=== PATIENT | female | born 1975 | race Caucasian/White ===

== ENCOUNTER 2020-03-12 16:52 | Emergency (ER) | payer BC, SELFPAY ==
[2020-03-12 17:07] VITALS: BP 125/81; PULSE 82; RESP 20; TEMP 36.9; O2SAT 99; BMI 20.4
[2020-03-12 17:20] VITALS: BP 125/81; PULSE 82; RESP 20; TEMP 36.9; O2SAT 99
--- NOTE | 2020-03-12 17:23 | HMH.EDUTC ---
[facility] [place] Clinical Impression: Exposure to COVID-19 virus Disposition: Home, Self-Care Condition on Discharge: Good Instructions: Preventing the Spread of Coronavirus Discharge Instructions Additional Instructions: Drink plenty of fluids. Take tylenol or ibuprofen for pain or fever. Follow up with your regular doctor. GO TO THE ER FOR ANY WORSENING SYMPTOMS FOLLOW THE DIRECTIONS ON THE COVID-19 HAND OUT THAT WE GAVE YOU REGARDING SELF-ISOLATION UNTIL YOU KNOW YOUR COVID-19 RESULTS Referrals: Hector Randolph [Primary Care Provider] - Forms: Work/School Release Time of Disposition: 17:24 Medical Decision Making - Medical Records Medical records reviewed: No: I reviewed the patient's medical records. - Sang Inquiry Pt receiving controlled substance: No Vital Signs: 03/12/20 17:07 03/12/20 17:20 Temperature 98.4 F 98.4 F Temperature Source Oral Pulse Rate 82 Pulse Rate [Left Brachial] 82 Respiratory Rate 20 20 Blood Pressure 125/81 Blood Pressure [Left Arm] 125/81 Blood Pressure Mean [Left Arm] 95 Blood Pressure Source [Left Arm] Automatic Cuff Blood Pressure Position [Left Arm] Sitting 02 Sat by Pulse Oximetry 99 Oxygen Delivery Method Room Air Orders (Tests/Meds): ORDERS Category Date Time Status Coronavirus 19 Swab (OUTPT) Routine Lab 03/12/20 17:24 Received [facility] [place] - General Stated complaint: covid test headace Time Seen by Provider: 03/12/20 17:10 Mode of Arrival: Ambulatory Source of Information: Patient Limitations: No Limitations Description of Symptoms (Recalled from Triage Doc. by RN): PATIENT C/O HEADACHE AND NECK PAIN X 2 DAYS. REQUESTING COVID TEST. NO KNOWN EXPOSURE HEENT Symptoms (Recalled from RN notes): Yes Resp Symptoms (Recalled from RN notes): No Skin Symptoms (Recalled from RN notes): No MS Symptoms (Recalled from RN notes): No Functional Status (Recalled from RN notes): WNL - History of Present Illness Provider Complaint: She c/o having frequent headaches for the past 2 days. She is not sure if she has been exposed to COVID-19, but she would like to be checked. - Related Data Allergies Allergy/AdvReac Type Severity Reaction Status Date / Time nitrofurantoin Allergy Verified 03/12/20 17:10 [From Macrobid] Sulfa (Sulfonamide Allergy Verified 03/12/20 17:10 Antibiotics) - Worker's Comp Is this a Worker's Comp case?: No [facility] History - Hepatitis A Screen Drug use history?: No High risk sexual behaviors?: No History of sexually transmitted infection?: No Currently employed?: No Childcare worker?: No Do you have indoor plumbing?: Yes Do you have electricity?: Yes Attestation statement:: This patient has been screened for Hepatitis A risk factors. I have reviewed the patient's past medical history: Yes - Social History Alcohol Intake: never Occupational Status: other ROS Obtained: Yes All systems reviewed & no additional complaints - Constitutional Constitutional: Denies chills, Denies fever(s), Reports poor appetite, Reports malaise - Eyes Eyes: Denies eye discharge - ENT Ears, Nose, Mouth, and Throat: Denies sore throat - Cardiovascular Cardiovascular: Denies chest pain - Respiratory Respiratory: No chest congestion, No cough Physical Exam - General General appearance: alert, in no apparent distress - Head Head exam: atraumatic, normocephalic, normal inspection - Eye Eye exam: Present: normal appearance, PERRL, EOMI - ENT ENT exam: Present: normal exam, normal oropharynx, mucous membranes moist, TM's normal bilaterally, normal external ear exam - Neck Neck exam: Present: normal inspection, full ROM, trachea midline. Absent: meningismus, lymphadenopathy - Chest Chest inspection: Present: normal inspection, symmetric chest wall rise. Absent: tenderness - Respiratory Respiratory exam: Present: normal lung sounds bilaterally. Absent: respiratory distress - Cardi
== END 2020-03-12 17:25 | disposition home or self-care (01) ==
PROVIDERS: Emergency Provider Nurse Practitioner Family; PCP Family Medicine
DX: Z20.828 Contact with and (suspected) exposure to other viral communicable diseases (principal); R51 Headache; Z88.2 Allergy status to sulfonamides
CPT/HCPCS: 99201; U0003

== ENCOUNTER 2020-07-19 09:37 | Emergency (ER) | payer BC, SELFPAY ==
[2020-07-19 09:40] VITALS: BP 140/82; PULSE 67; RESP 18; TEMP 36.6; O2SAT 99; BMI 21.9
--- NOTE | 2020-07-19 09:58 | HMH.EDUTC ---
[facility] [place]ression: Exposure to COVID-19 virus Disposition: Home, Self-Care Condition on Discharge: Good Instructions: DI for COVID-19 (Suspected or Confirmed ), COVID-19 Viral Test, COVID-19: Testing and Tracing, Preventing the Spread of Coronavirus Discharge Instructions Additional Instructions: *Monitor Temp, Over the counter Motrin or Tylenol as directed/as needed Tylenol every 4 hours and Motrin every 6 hours (as long as your family doctor has told you that you can take it) for fever or pain. and straight to ER if unable to lower temp less than 101.0 after medication given *Humidifier/Vaporizer *Flonase 2 sprays in each nostril daily but be aware that it may take 2-3 days before you notice improvement Follow up IMMEDIATELY for new or worsening symptoms or no Noticeable improvement over the next 48-72 hours. 911 for difficulty breathing or swallowing You were tested for today for COVID19 your test result should be back in the next 24-48 hours, you may call to the [facility] to see if your test results are back in the next 48 hours [phone] [facility] hours are 9am-9pm You was given a handout with instructions for Self Quarantine and Self isolation for while you wait on test results and what to do if they are positive If you are positive the Health Dept will be contacting you also Referrals: Hector Randolph [Primary Care Provider] - As needed Forms: Work/School Release Time of Disposition: 09:59 Medical Decision Making - Sang Inquiry Pt receiving controlled substance: No Sang was queried for this patient: No Vital Signs: 07/19/20 09:40 Temperature 97.8 F Temperature Source Oral Pulse Rate [Right Brachial] 67 Respiratory Rate 18 Blood Pressure [Right Arm] 140/82 Blood Pressure Mean [Right Arm] 101 Blood Pressure Source [Right Arm] Automatic Cuff Blood Pressure Position [Right Arm] Sitting 02 Sat by Pulse Oximetry 99 Oxygen Delivery Method Room Air Orders (Tests/Meds): ORDERS Category Date Time Status Covid-19 Nasal PCR Sendout P&[facility] Stat Lab 07/19/20 09:38 Ordered [facility] [place] - General Stated complaint: wants covid test,symtoms Time Seen by Provider: 07/19/20 09:58 Mode of Arrival: Ambulatory Source of Information: Patient Limitations: No Limitations Description of Symptoms (Recalled from Triage Doc. 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 States that she has not had any fever or any other symptoms - Related Data Allergies Allergy/AdvReac Type Severity Reaction Status Date / Time nitrofurantoin Allergy Verified 03/12/20 17:10 [From Macrobid] Sulfa (Sulfonamide Allergy Verified 03/12/20 17:10 Antibiotics) - Worker's Comp Is this a Worker's Comp case?: No [facility] History - Hepatitis A Screen Drug use history?: No High risk sexual behaviors?: No History of sexually transmitted infection?: No Currently employed?: No Childcare worker?: No Do you have indoor plumbing?: Yes Do you have electricity?: Yes Attestation statement:: This patient has been screened for Hepatitis A risk factors. I have reviewed the patient's past medical history: Yes Laterality Cases: Bilateral: Tonsillectomy - Social History Alcohol Intake: never Occupational Status: other ROS Obtained: Yes All systems reviewed & no additional complaints, Yes Systems reviewed as appropriate & no additional complaints - Constitutional Constitutional: Reports system reviewed and no additio
[2020-07-19 10:00] VITALS: BP 140/82; PULSE 67; RESP 18; TEMP 36.6; O2SAT 99
[2020-07-20 12:36] LABS: Covid-19 Nasal PCR Sendout P&C NEGATIVE
== END 2020-07-19 10:02 | disposition home or self-care (01) ==
PROVIDERS: Emergency Provider Nurse Practitioner; PCP Family Medicine
DX: Z20.828 Contact with and (suspected) exposure to other viral communicable diseases (principal); Z88.2 Allergy status to sulfonamides
CPT/HCPCS: 99201; U0004

== ENCOUNTER 2025-07-02 09:21 | Outpatient (CLI) | payer OTHER, SELFPAY ==
--- NOTE | 2025-07-02 09:25 | XR_ITS ---
FINAL REPORT CLINICAL HISTORY: right foot/ankle injury pain lateral FINDINGS: Right ankle Three views were obtained. There is no fracture or dislocation. The joint spaces appear normal. No soft tissue abnormality is identified. IMPRESSION: No acute process. Reviewed, Interpreted and Dictated by Macho Hayes MD Transcribed by Erika Farmer Authenticated and [facility]
--- NOTE | 2025-07-02 09:25 | XR_ITS ---
FINAL REPORT CLINICAL HISTORY: right foot/ankle injury pain dorsal surface FINDINGS: Right foot Three views were obtained. There is no fracture or dislocation. The joint spaces appear normal. No soft tissue abnormality is identified. IMPRESSION: No acute process. Reviewed, Interpreted and Dictated by Macho Hayes MD Transcribed by Erika Farmer Authenticated and [facility]
--- OUTSIDE RECORDS SUMMARY | 2025-07-02 09:34 | XMS_ITS | Clinical Summary ---
Author Organization [employer] ([place], [place], [place], [place], [place]) Address [address] [place] [address] Care Team Providers Care Manager Of Development Name Role Phone Natty Parr MD Primary Care Provider [phone] Social History Tobacco Use Types Packs/Day Years Used Date Smoking Tobacco: Never Assessed Comments Unknown Sex and Gender Information Value Date Recorded Sex Assigned at Female 09/11/2024 1:18 PM SOCIOLOGY RESEARCH ASSISTANT Legal Sex Female 1:18 PM SOCIOLOGY RESEARCH ASSISTANT Gender Identity Female 09/11/2024 1:18 PM SOCIOLOGY RESEARCH ASSISTANT Sexual Orientation Not on file Plan of Treatment Health Maintenance Due Date Last Done Comments CT Colonography 1976 Colonoscopy 1976 Colorectal Cancer Screening 1976 FOBT/FIT 1976 Fit-DNA (Cologuard) 1976 Sigmoidoscopy 1976 Depression Screening (12+) 1988 Tobacco Cessation Counseling and Screening (12+) 1988 HIV Screening 1991 Hepatitis C Screening 1994 DTAP/TDAP/TD VACCINES (1 - Tdap) 1995 Pap Smear 1997 Lipid Panel 2021 COVID-19 VACCINE ( season) 2025 03/08/2022, 06/14/2021, 11/18/2020, Additional history exists Influenza Vaccine (#1) 2025 Breast Cancer Screening 01/16/2026 01/17/2024, 09/14 Pneumococcal Vaccine: 0-49 Years Aged Out No longer eligible based on patient's age to complete this topic Procedures Procedure Name Priority Date/Time Associated Diagnosis Comments MM SCREENING BILATERAL WITH IMPLANTS WITH SVEN WITH CAD Routine 01/17/2024 2:06 PM EDT Visit for screening mammogram from Last 3 Months or Most Recently Relevant to Health Maintenance Results * MM Screening Bilateral With Implants w SVEN w CAD (01/17/2024 2:06 PM EDT) Anatomical Region Laterality Modality Breast Bilateral Mammography 01/21/2024 3:20 PM EDT Impressions 01/21/2024 3:24 PM EDT FINAL IMPRESSION: No mammographic evidence of malignancy. BI-RADS: ACR BI-RADS 2: Benign findings. RECOMMENDATIONS: Annual Screening Mammography This report will serve as an order for any recommended procedure(s). A letter including results and recommendations was sent to the patient. Density notification was provided to patients with dense breast tissue pattern. Patient information entered into a reminder system with a target due date for the next mammogram. At our facility, a [place] marker is positioned over a visible skin lesion and a linear marker is used to indicate a scar. A triangular marker is placed on a self reported palpable finding. Note: Mammography does not detect approximately 10-15% of breast cancers. An annual clinical breast exam by the patient's breast care physician and regular monthly self breast exams by the patient are integral parts of breast cancer screening, in addition to annual mammography. A normal mammogram does not completely exclude the presence of breast cancer, especially if there is an abnormal finding on physical exam. When clinically indicated, a biopsy should not be deferred because of a normal mammogram report. Narrative 01/21/2024 3:24 PM EDT PROCEDURE: Bilateral digital screening mammogram with tomosynthesis. REASON FOR EXAM: Routine screening. FAMILY HISTORY: Mother and maternal aunt with history of breast cancer. COMPARISON STUDY: None mammograms between August 2022 and June 2014. FINDINGS: Craniocaudal and mediolateral oblique images were obtained in 2D, C-view, and 3D modes. Craniocaudal and mediolateral oblique images of were obtained in 2D, C-view, and 3D modes with implant displacement. 2D CC and MLO views of each breast with implant inclusion were also obtained. This examination was reviewed with the benefit of computer-aided detection (CAD). There are scattered areas of fibroglandular density. There are no suspicious findings. There are intact subpectoral saline implants. Natty Parr MD IMG MAMMOGRAPHY ORDERABLES Fin al Result from Last 3 Months or Most Recently Relevant to Health Maintenance Insurance [employer] Care Teams Manager Of Development Relationship Specialty Start Date End Date Natty Parr MD [address] [place] [id number] PCP - General Obstetrics and Gynecology 09/14/22
--- OUTSIDE RECORDS SUMMARY | 2025-07-02 09:34 | XMS_ITS | Referral Summary ---
Author Organization [employer] ([place], [place], [place], [place], [place]) Address [address] [place] [address] Care Team Providers Care Copper Miner Name Role Phone Natty Parr MD Primary Care Provider [phone] Social History Tobacco Use Types Packs/Day Years Used Date Smoking Tobacco: Never Assessed Comments Unknown Sex and Gender Information Value Date Recorded Sex Assigned at Female 09/11/2024 1:18 PM PLANT PATHOLOGY TEACHER Legal Sex Female 1:18 PM PLANT PATHOLOGY TEACHER Gender Identity Female 09/11/2024 1:18 PM PLANT PATHOLOGY TEACHER Sexual Orientation Not on file Plan of Treatment Not on file Procedures Procedure Name Priority Date/Time Associated Diagnosis [...] the next mammogram. At our facility, a [place] marker is positioned over a visible skin [...] to Health Maintenance Insurance [employer] Care Teams Copper Miner Relationship Specialty Start Date End Date Natty Parr MD [address] [facility] [address] [place] [address] PCP - General Obstetrics and Gynecology 09/14/22
== END 2025-07-02 23:59 | disposition home or self-care (01) ==
LOC: RAD 09:23
PROVIDERS: PCP Family Medicine; Visit Provider Podiatrist
DX: S99.921A Unspecified injury of right foot, initial encounter (principal); M79.671 Pain in right foot; S99.911A Unspecified injury of right ankle, initial encounter; M25.571 Pain in right ankle and joints of right foot
CPT/HCPCS: 73610; 73630

== ENCOUNTER 2025-07-13 08:16 | Outpatient (CLI) | payer OTHER, SELFPAY ==
--- OUTSIDE RECORDS SUMMARY | 2025-06-19 14:15 | XMS_ITS | Encounter Summary ---
Author Organization [facility] Address [address] [place] [address] Care Team Providers Care Repairer Pump Name Role Phone Chris Randolph MD Primary Care Provider [phone] Reason for Visit * Reason Comments ER follow up Encounter Details Date Type Department Care Team (Late st Contact Info) Description 06/19/2025 2:15 PM EST Office Visit [facility] [address] [place] [address] [place] [address] Chris Randolph MD [address] [place] [address] [place] [address] Elevated blood pressure reading in office without diagnosis of hypertension (Primary Dx); Avulsion fracture; Skin cyst Social History Tobacco Use Types Packs/Day Years Used Date Smoking Tobacco: Never Passive Smoke Exposure: Never Smokeless Tobacco: Never Alcohol Use Standard Drinks/Week Comments Yes 0 (1 standard drink = 0.6 oz pur e alcohol) socail PHQ-2 Answer Date Recorded Retired PHQ-9: Brief Depression Severity Measure Score 0 03/19/2023 Abuse Screen Answer Date Recorded Feels Unsafe at Home or Work/School no 06/16/2025 Feels Threatened by Someone no 05/30 Does Anyone Try to Keep You From Having Contact with Others or Doing Things Outside Your Home? no 06/16/2025 Physical Signs of Abuse Present no 06/16/2025 PHQ-2 Answer Date Recorded Patient Health Questionnaire-2 Score 0 06/19/2025 Comments No Sex and Gender Information Value Date Recorded Sex Assigned at Not on file Legal Sex Female 12:53 PM EDT Gender Identity Not on file Sexual Orientation Not on file Travel History Travel Start Travel End [place] 05/22/2025 06/22/2025 documented as of this encounter Last Filed Vital Signs Vital Sign Reading Time Taken Comments Blood Pressure 152/84 06/19/2025 2:29 PM EST Pulse 69 06/19/2025 2:29 PM EST Temperature 36.8 C (98.2 F) 06/19/2025 2:29 PM EST Respiratory Rate - - Oxygen Saturation 98% 06/19/2025 2:29 PM EST Inhaled Oxygen Concentration - - Weight 56.7 kg (125 lb) 06/19/2025 2:29 PM EST Height 160 cm (5' 3 ) 06/19/2025 2:29 PM EST Body Mass Index 22.14 06/19/2025 2:29 PM EST documented in this encounter Functional Status documented as of this encounter Progress Notes * Chris Randolph MD - 06/19/2025 2:15 PM ESTAssociated Order(s): ECG 12 Lead Pre-Procedure Diagnose(s): Elevated blood pressure reading in office without diagnosis of hypertension Post-Procedure Diagnose(s): Elevated blood pressure reading in office without diagnosis of hypertension Images from the original note were not included. Follow Up Office Visit Date: 06/19/2025 Patient Name: Lucian Brown : 1975 Chief Complaint: Chief Complaint Patient presents with ER follow up History of Present Illness: Lucian Brown is a 49 y.o. female who is here today for elevatedblood pressure and foot injury. History of Present Illness The patient presents for evaluation of elevated blood pressure, a foot injury, and a finger lump. She reports a history of slightly elevated blood pressure, with an instance of being disqualified from blood donation due to hypertension. During a recent emergency room visit on Sunday, her blood pressure was recorded at 170/100. She does not regularly monitor her blood pressure but estimates it has been checked approximately four times in the past year. She experiences occasional dizziness andheart palpitations, symptoms she has had for the majority of her life. She reports no family history of hypertension. Her dietary habits include a high intake of salt and she consumes 1 to 2 units ofalcohol nightly, although there are nights when she abstains. Non-smoker. She sustained a right foot injury during an endurance race last weekend, where she fell off a horseand her foot got caught in the stirrup. She was evaluated at [facility] ER several days later where an x-ray of her right foot revealed radiographic evidence of an avulsion fracture of the cuboid bone. She has been fitted with a boot and has an orthopedic follow-up appointment schedule d for next week. She reports mild soreness in her foot, particularly around the suspected fracture site, and some soft tissue swelling. She has been managing the pain with ibuprofen, taking one or two tablets as needed. She has a small mucoid-filled bubble on her distal right third finger, which she has attempted to treat by cutting off the top. The bubble appears to heal temporarily but then refills with fluid. This issue has persisted for three to four months and has caused some deformation of the nail bed. SOCIAL HISTORY The patient drinks 1 to 2 units of alcohol probably a night sometimes and then sometimes not at all. FAMILY HISTORY The patient does not have a family history of hypertension. MEDICATIONS CURRENT MEDS: Ibuprofen Oral When needed Subjective Review of Systems: Review of Systems I have reviewed the patients family history, social history, past medical history, past surgical history and have updated it as appropriate. Medications: No current outpatient medications on file. Allergies: Allergies Allergen Reactions Nitrofuran Derivatives Hives Sulfa Antibiotics Hives Objective Physical Exam: Please see above Vital Signs: Vitals: 06/19/25 1429 BP: 152/84 BP Location: Left arm Patient Position: Sitting Cuff Size: Adult Pulse: 69 Temp: 98.2 ??F (36.8 ??C) TempSrc: Temporal SpO2: 98% Weight: 56.7 kg (125 lb) Height: 160 cm (63 ) Body mass index is 22.14 kg/m??. BMI is within normal parameters. No other follow-up for BMI required. Physical Exam Constitutional: General: She is not in acute distress. Appearance: Normal appearance. She is normal weight. She is not ill-appearing. Cardiovascular: Rate and Rhythm: Normal rate and regular rhythm. Heart sounds: Normal heart sounds. No murmur heard. No friction rub. No gallop. Pulmonary: Effort: Pulmonary effort is normal. No respiratory distress. Breath sounds: Normal breath sounds. Musculoskeletal: General: Swelling, tenderness and signs of injury present. Comments: Right mid to distal dorsal foot swelling and pain, more noted at the mid dorsal lateral aspect, NVI. Wearing a walking boot Skin: Findings: Lesion present. Comments: 4 to 5 mm diameter fluctuant skin lesion of the distal dorsal phalanx of the right third finger abutting the nailbed margin. This lesion was cleansed with alcohol followed by needle rupture of the cyst and subsequent cryotherapy application. Tolerated well Neurological: General: No focal deficit present. Mental Status: She is alert and oriented to person, place, and time. Mental status is at baseline. Psychiatric: Mood and Affect: Mood normal. 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 Elevated blood pressure reading in office without diagnosis of hypertension (Primary) - ECG 12 Lead 2. Avulsion fracture 3. Skin cyst Assessment & Plan 1. Elevated blood pressure without diagnosis of hypertension. Her blood pressure readings have been inconsistent over the past year, with only a few measurementstaken. The current readings are not ideal for long-term health. She has been advised to reduce her alcohol consumption and monitor her blood pressure more frequently, aiming for readings below 130/80. An EKG performed today has ruled out left ventricular hypertrophy, including incidental finding ofIVCD and left anterior fascicular block likely of no clinical significance. She is advised to startchecking blood pressures regularly with ideal parameters discussed, and follow-up in the office in 6 weeks for review as well as for complete physical. Discussed with patient that [place] blood pressure is 130/80 or lower. If her blood pressure remains elevated in the 140s over 90s consistently over a period of 6 weeks, antihypertensive medication will be considered. 2. Right foot injury/avulsion fracture. She sustained a minor avulsion fracture of the cuboid bone in her right foot during an endurance race last weekend 6 days ago. She was evaluated at [facility] emergency room 3 days ago where x-rays confirmed this diagnosis. The foot is currently in a boot, and she has an orthopedic follow-up scheduled for next week. She is taking ibuprofen as needed for pain management. 3. Finger lump. A small mucoid-filled bubble on her distal dorsal right third finger has been present for 3 to 4 months and is causing some deformation of the nail bed. A needle aspiration will be attempted to drainthe fluid followed by cryotherapy application. If this procedure is unsuccessful, a referral to a risk professional will be considered. PROCEDURE Procedure: Needle aspiration of mucoid-filled bubble on finger - Procedural Discussion: Discussed the patient's mucoid-filled bubble on the finger, including the option to rupture it with a needle. The patient mentioned previous attempts to cut the top off, which led to temporary relief but recurrence. The patient consented to the needle aspiration procedure. - Technique: A needle was used to rupture and penetrate the mucoid-filled bubble on the finger. Vaccine Counseling: Follow Up: Return in about 6 weeks (around 07/31/2025) for Annual physical. 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 06/19/2025 17:29 EST At [facility], we believe that sharing information builds trust and better relationships. You are receiving this note because you recently visited [facility]. It is possible you will see health information before a provider has talked with you about it. This kind of information can be easy to misunderstand. To help you fully understand what it means for your health, we urge you to discussthis note with your provider. Chris Randolph MD [facility] Manda documented in this encounter Plan of Treatment Upcoming Encounters Date Type Department Care Team (Late st Contact Info) Description 11/30/2025 10:50 AM EDT Office Visit [facility] [address] [facility] [address] [place] [address] Natty Parr MD [address] [facility] [address] [place] [address] documented as of this encounter Procedures Procedure Name Priority Date/Time Associated Diagnosis Comments ECG 12-LEAD Routine 06/19/2025 Elevated blood pressure reading in office without diagnosis of hypertension documented in this encounter Results * ECG 12-LEAD (06/19/2025) Narrative [facility] ECG - 06/19/2025 Chris Randolph MD 06/19/2025 5:31 PM ECG 12 Lead Date/Time: 06/19/2025 5:30 PM Performed by: Chris Randolph MD Authorized by: Chris Randolph MD Comparison: compared with previous ECG from 09/30/2019 Comparison to previous ECG: Sinus rhythm rate 67, IVCD, left anterior fascicular block, 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 Follow Up Office Visit Date: 06/19/2025 Patient Name: Lucian Brown : 1975 Chief Complaint: Chief Complaint Patient presents with ER follow up History of Present Illness: Lucian Brown is a 49 y.o. female whois here today for elevated blood pressure and foot injury. History of Present Illness The patient presents for evaluation of elevated blood pressure, a footinjury, and a finger lump. She reports a history of slightly elevated blood pressure, with aninstance of being disqualified from blood donation due to hypertension.During a recent emergency room visit on Sunday, her blood pressure wasrecorded at 170/100. She does not regularly monitor her blood pressure butestimates it has been checked approximately four times in the past year.She experiences occasional dizziness and heart palpitations, symptoms shehas had for the majority of her life. She reports no family history ofhypertension. Her dietary habits include a high intake of salt and sheconsumes 1 to 2 units of alcohol nightly, although there are nights whenshe abstains. Non- smoker. She sustained a right foot injury during an endurance race last weekend,where she fell off a horse and her foot got caught in the stirrup. She wasevaluated at [facility] ER several days later where an x-rayof her right foot revealed radiographic evidence of an avulsion fractureof the cuboid bone. She has been fitted with a boot and has an orthopedicfollow-up appointment scheduled for next week. She reports mild sorenessin her foot, particularly around the suspected fracture site, and somesoft tissue swelling. She has been managing the pain with ibuprofen,taking one or two tablets as needed. She has a small mucoid-filled bubble on her distal right third finger,which she has attempted to treat by cutting off the top. The bubbleappears to heal temporarily but then refills with fluid. This issue haspersisted for three to four months and has caused some deformation of thenail bed. SOCIAL HISTORY The patient drinks 1 to 2 units of alcohol probably a night sometimes andthen sometimes not at all. FAMILY HISTORY The patient does not have a family history of hypertension. MEDICATIONS CURRENT MEDS: Ibuprofen Oral When needed Subjective Review of Systems: Review of Systems I have reviewed the patients family history, social history, past medicalhistory, past surgical history and have updated it as appropriate. Medications: No current outpatient medications on file. Allergies: Allergies Allergen Reactions Nitrofuran Derivatives Hives Sulfa Antibiotics Hives Objective Physical Exam: Please see above Vital Signs: Vitals: 06/19/25 1429 BP: 152/84 BP Location: Left arm Patient Position: Sitting Cuff Size: Adult Pulse: 69 Temp: 98.2 F (36.8 C) TempSrc: Temporal SpO2: 98% Weight: 56.7 kg (125 lb) Height: 160 cm (63 ) Body mass index is 22.14 kg/m . BMI is within normal parameters. No other follow-up for BMI required. Physical Exam Constitutional: General: She is not in acute distress. Appearance: Normal appearance. She is normal weight. She is notill-appearing. Cardiovascular: Rate and Rhythm: Normal rate and regular rhythm. Heart sounds: Normal heart sounds. No murmur heard. No friction rub. No gallop. Pulmonary: Effort: Pulmonary effort is normal. No respiratory distress. Breath sounds: Normal breath sounds. Musculoskeletal: General: Swelling, tenderness and signs of injury present. Comments: Right mid to distal dorsal foot swelling and pain, more notedat the mid dorsal lateral aspect, NVI. Wearing a walking boot Skin: Findings: Lesion present. Comments: 4 to 5 mm diameter fluctuant skin lesion of the distal dorsalphalanx of the right third finger abutting the nailbed margin. This lesion was cleansed with alcohol followed by needle rupture of thecyst and subsequent cryotherapy application. Tolerated well Neurological: General: No focal deficit present. Mental Status: She is alert and oriented to person, place, and time.Mental status is at baseline. Psychiatric: Mood and Affect: Mood normal. ECG 12 Lead Date/Time: 06/19/2025 5:30 PM Performed by: Chris Randolph MD Authorized by: Chris Randolph MD Comparison: compared with previous ECGfrom 09/30/2019 Comparison to previous ECG: Sinus rhythm rate 67, IVCD, left anteriorfascicular block, LAFB new from previous EKG Results: Labs: TSH Date Value Ref Range Status 10/19/2021 1.640 0.270 - 4.200 uIU/mL Final POCT Results (if applicable): Results for orders placed or performed in visit on 01/19/25 [facility] GENETIC RISK ASSESSMENT QUESTIONNAIRE - , Collection Time: 01/19/25 8:24 AM Result Value Ref Range TyrerCuzick 22.6 (A) NCCN NCCN met (A) Assessment / Plan Assessment/Plan: Diagnoses and all orders for this visit: 1. Elevated blood pressure reading in office without diagnosis ofhypertension (Primary) - ECG 12 Lead 2. Avulsion fracture 3. Skin cyst Assessment & Plan 1. Elevated blood pressure without diagnosis of hypertension. Her blood pressure readings have been inconsistent over the past year,with only a few measurements taken. The current readings are not ideal forlong-term health. She has been advised to reduce her alcohol consumptionand monitor her blood pressure more frequently, aiming for readings xdedd595/80. An EKG performed today has ruled out left ventricular hypertrophy,including incidental finding of IVCD and left anterior fascicular blocklikely of no clinical significance. She is advised to start checkingblood pressures regularly with ideal parameters discussed, and follow- upin the office in 6 weeks for review as well as for complete physical.Discussed with patient that [place] blood pressure is 130/80 or lower. Ifher blood pressure remains elevated in the 140s over 90s consistently overa period of 6 weeks, antihypertensive medication will be considered. 2. Right foot injury/avulsion fracture. She sustained a minor avulsion fracture of the cuboid bone in her rightfoot during an endurance race last weekend 6 days ago. [facility] where x-raysconfirmed this diagnosis. The foot is currently in a boot, and she has anorthopedic follow-up scheduled for next week. She is taking ibuprofen asneeded for pain management. 3. Finger lump. A small mucoid-filled bubble on her distal dorsal right third finger hasbeen present for 3 to 4 months and is causing some deformation of the nailbed. A needle aspiration will be attempted to drain the fluid followed bycryotherapy application. If this procedure is unsuccessful, a referral toa risk professional will be considered. PROCEDURE Procedure: Needle aspiration of mucoid-filled bubble on finger - Procedural Discussion: Discussed the patient's mucoid-filled bubble onthe finger, including the option to rupture it with a needle. The patientmentioned previous attempts to cut the top off, which led to temporaryrelief but recurrence. The patient consented to the needle aspirationprocedure. - Technique: A needle was used to rupture and penetrate the mucoid-filledbubble on the finger. Vaccine Counseling: Follow Up: Return in about 6 weeks (around 07/31/2025) for Annual physical. 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 06/19/2025 17:29 EST At [facility], we believe that sharing information builds trust andbetter relationships. You are receiving this note because you [facility]. It is possible you will see health informationbefore a provider has talked with you about it. This kind of informationcan be easy to misunderstand. To help you fully understand what it meansfor your health, we urge you to discuss this note with your provider. Chris Randolph MD [facility] us Chris Randolph MD ECG ORDERABLES Final Result ECG documented in this encounter Visit Diagnoses Diagnosis Elevated blood pressure reading in office without diagnosis of hypertension- Primary Avulsion fracture Closed fracture of unspecified bone Skin cyst Sebaceous cyst documented in this encounter Care Teams Repairer Pump Relationship Specialty Start Date End Date Chris Randolph MD [address] [place] [address] PCP - General Internal Medicine 03/19/23 documented as of this encounter
--- OUTSIDE RECORDS SUMMARY | 2025-06-22 10:50 | XMS_ITS | Encounter Summary ---
Author Organization [facility] Address [address] [place] [address] Care Team Providers Care Aircraft Engineer Name Role Phone Chris Randolph MD Primary Care Provider [phone] Reason for Visit * Reason Comments Pain * Consultation (Urgent) - Closed Specialty Diagnoses / Procedures Referred By Contac t Referred To Contact Orthopedic Surgery Diagnoses Closed nondisplaced fracture of cuboid of right foot, initial encounter Mark Anthony Daniel MD [address] [facility] [address] [place] [address] Phone: tel: fax: [facility] ORTHOPEDICS & SPORTS MEDICINE [address] [facility] [address] [place] [address] Phone: tel: fax: Referral ID Status Reason Start Date Expiration Date V isits Requested Visits Authorized [id number] Closed Specialty Services Required 06/16/2025 09/15/2026 1 1 Encounter Details Date Type Department Care Team (Late st Contact Info) Description 06/22/2025 10:50 AM EST Office Visit [facility] [address] [facility] [address] [place] [address] Deepti Colby PA-C [address] [facility] [address] [place] [address] Joint pain of ankle and foot, right (Primary Dx) Social History Tobacco Use Types Packs/Day Years [...] file Travel History Travel Start Travel End [place] 05/22/2025 06/22/2025 documented as of this encounter Last Filed Vital Signs Vital Sign Reading Time Taken Comments Blood Pressure 150/92 06/22/2025 10:54 AM EST Pulse - - Temperature - - Respiratory Rate - - Oxygen Saturation - - Inhaled Oxygen Concentration - - Weight 55.8 kg (123 lb 1.6 oz) 06/22/2025 10:54 AM EST Height 157.5 cm (5' 2 ) 06/22/2025 10:54 AM EST Body Mass Index 22.52 06/22/2025 10:54 AM EST documented in this encounter Progress Notes * Deepti Colby PA-C - 06/22/2025 10:50 AM EST Images from the original note were not included. [facility] Office Visit - Deepti Colby PA-C Office Visit Patient Name: Lucian Brown Chief Complaint: Chief Complaint Patient presents with Right Foot - Pain Referring Physician: Mark Anthony Daniel MD History of Present Illness: Lucian Brown is a very pleasant 49 y.o. female who presents to discuss her right foot pain.She reports she was riding her horse and fell getting her foot caught in the stirrup. The foot was twisted. This happened on 06/13/2025. She complains of dorsal foot pain as well as ankle pain and lateral ankle pain. She was seen at the ED with x-rays and placed in a tall boot. She has been weightbearing and walking the boot which does seem to improve her pain. 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 She has been treating with ibuprofen. Here for further evaluation and treatment conditions. Subjective Review of Systems Constitutional: Negative for chills, fever, unexpected weight gain and unexpected weight loss. HENT: Negative for congestion, postnasal drip and rhinorrhea. Eyes: Negative for blurred vision. Respiratory: Negative for shortness of breath. Cardiovascular: Negative for leg swelling. Gastrointestinal: Negative for abdominal pain, nausea and vomiting. Genitourinary: Negative for difficulty urinating. Musculoskeletal: Positive for arthralgias. Negative for gait problem, joint swelling and myalgias. Skin: Negative for skin lesions and wound. Neurological: Negative for dizziness, weakness, light-headedness and numbness. Hematological: Does not bruise/bleed easily. Psychiatric/Behavioral: Negative for depressed mood. Past Medical History: Past Medical History: Diagnosis Date Abnormal ECG Abnormal Pap smear of cervix Breast cyst 08/2020 patient had mammogram that showed benign breast cyst Thyroid adenoma benign Past Surgical History: Past Surgical History: Procedure Laterality Date AUGMENTATION MAMMAPLASTY Bilateral saline implants since 2013 BREAST AUGMENTATION BREAST LUMPECTOMY Left CERVICAL CONE BIOPSY SECTION DENTAL PROCEDURE as a teen DILATATION AND CURETTAGE HAND SURGERY right thumb scar tissue removal HERNIA REPAIR THYROIDECTOMY, PARTIAL 2013 TONSILLECTOMY TUBAL ABDOMINAL LIGATION WISDOM TOOTH EXTRACTION Family History: Family History Problem Relation Name Age of Onset Heart disease Mother Hypertension Mother Breast cancer Mother 50 Fibroids Mother Brain cancer Paternal Grandfather Lung cancer Paternal Grandfather Osteoporosis Maternal Grandmother Leukemia Maternal Grandmother Breast cancer Maternal Aunt Colon cancer Maternal Aunt Osteoporosis Maternal Aunt Social History: Social History Socioeconomic History Marital status: Single Tobacco Use Smoking status: Never Passive exposure: Never Smokeless tobacco: Never Vaping Use Vaping status: Never Used Substance and Sexual Activity Alcohol use: Yes Comment: socail Drug use: Never Sexual activity: Yes Partners: Male control/protection: Tubal ligation Comment: tubal ligation Medications: Current Outpatient Medications: ibuprofen (ADVIL,MOTRIN) 200 MG tablet, Take 1 tablet by mouth As Needed for Mild Pain., Disp: , Rfl: Allergies: Allergies Allergen Reactions Nitrofuran Derivatives Hives Sulfa Antibiotics Hives I have reviewed and updated the following portions of the patient's history and review of systems: allergies, current medications, past family history, past medical history, past social history, pastsurgical history and problem list. Objective Vital Signs: Vitals: 06/22/25 1054 BP: 150/92 Weight: 55.8 kg (123 lb 1.6 oz) Height: 157.5 cm (62 ) Ortho Exam: V: Dorsalis Pedis: Right: 2+; Posterior Tibial: Right:2+; Capillary Refill: Brisk MSK: Tibia: Right: non tender; Ankle: Right: tender over the ATFL, anterior ankle with no medial tenderness. No bony tenderness., ROM normal, and motor function normal; Pain with resisted dorsiflexion Foot: Right: tender somewhat diffuse tenderness, most tender over the naviulcar. Mild swelling and motor function normal; NEURO: [place] 5.07 monofilament test: not evaluated Lower extremity sensation: intact Calf Atrophy:none Motor Function: all 5/5 Results Review: XR Ankle 3+ View Right Indication: pain. Views: AP and oblique views of the ankle are submitted. Impression: The mortise is congruent. There is no widening. There is no fracture subluxation or dislocation. There are no acute changes. Comparison: 06/16/2025. XR Foot 3+ View Right Indication: pain. Views: AP lateral and oblique views of the feet are submitted. Impression: Nondisplaced fracture of the dorsum of the navicular. Comparison: 06/16/2025. Assessment / Plan Assessment: Diagnoses and all orders for this visit: 1. Joint pain of ankle and foot, right (Primary) - XR Foot 3+ View Right - XR Ankle 3+ View Right Quality Metrics: BMI: BMI is within normal parameters. No other follow-up for BMI required. Tobacco: Walker Kaylin Brown reports that she has never smoked. She has never been exposed to tobacco smoke. She has never used smokeless tobacco. Plan: Right foot injury. I reviewed xrays from the ED on 06/16/2025 as well as today's weightbearing x-rays, personally interpreted by me. X-rays show irregularity at the dorsal navicular indicating possible nondisplaced fracture. I explained to the patient that this will not need any surgical treatment.This can be treated with weightbearing in a tall boot for 6 weeks. She may come out of the boot to aidee carrillo. 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 I will see her back in 5 weeks with repeat x-rays, sooner if needed. Deepti Colby PA-C [facility] Orthopedic Surgery Dictated using Dragon Speech Recognition. documented in this encounter Plan of Treatment Upcoming Encounters Date Type Department Care Team (Late st Contact Info) Description 11/30/2025 10:50 AM EDT Office Visit [facility] OBGYN [address] [facility] [address] [place] [phone] Natty Parr MD [address] [address] documented as of this encounter Procedures Procedure Name Priority Date/Time Associated Diagnosis Comments XR ANKLE 3+ VW RIGHT Routine 06/22/2025 11:17 AM EST Joint pain of ankle and foot, right XR FOOT 3+ VW RIGHT Routine 06/22/2025 1 1:17 AM EST Joint pain of ankle and foot, right documented in this encounter Results * XR Ankle 3+ View Right (06/22/2025 11:17 AM EST) Anatomical Region Laterality Modality Lower Extremities, Ankle Right Radiogr aphic Imaging Narrative 06/22/2025 4:19 PM EST Indication: pain. Views: AP and oblique views of the ankle are submitted. Impression: The mortise is congruent. There is no widening. There is no fracture subluxation or dislocation. There are no acute changes. Comparison: 06/16/2025. Bj Shanks MD [facility] DIAGNOSTIC IMAGING AIDAN GONSALES Final Result * XR Foot 3+ View Right (06/22/2025 11:17 AM EST) Anatomical Region Laterality Modality Lower Extremities, Foot Right Radiogra [facility] Imaging Narrative 06/22/2025 4:18 PM EST Indication: pain. Views: AP lateral and oblique views of the feet are submitted. Impression: Nondisplaced fracture of the dorsum of the navicular. Comparison: 06/16/2025. Bj Shanks MD IMG DIAGNOSTIC IMAGING AIDAN GONSALES Final Result documented in this encounter Visit Diagnoses Diagnosis Joint pain of ankle and foot, right- Primary documented in this encounter Care Teams Aircraft Engineer Relationship Specialty Start Date End Date Chris Randolph MD [address] [place] [address] PCP - General Internal Medicine 03/19/23 documented as of this encounter
--- OUTSIDE RECORDS SUMMARY | 2025-06-22 11:10 | XMS_ITS | Encounter Summary ---
Author Organization [facility] Address [address] [place] [address] Care Team Providers Care Truck Caterer Name Role Phone Chris Randolph MD Primary Care Provider [phone] Encounter Details Date Type Department Care Team (Late st Contact Info) Description 06/22/2025 11:10 AM EST Ancillary Procedure [facility] ORTHOPEDICS & SPORTS MEDICINE [address] [place] [phone] Social History Tobacco Use Types Packs/Day Years [...] file Travel History Travel Start Travel End [place] 05/22/2025 06/22/2025 documented as of this encounter Plan of Treatment Upcoming Encounters Date Type Department Care Team (Late st Contact Info) Description 11/30/2025 10:50 AM EDT Office Visit [facility] OBGYN [address] [place] [address] Natty Parr MD [address] [facility] [address] [place] [address] documented as of this encounter Procedures Procedure Name Priority Date/Time Associated Diagnosis Comments XR FOOT 3+ VW RIGHT Routine 06/22/2025 1 1:17 AM EST Joint pain of ankle and foot, right documented in this encounter Results * XR Foot 3+ View Right (06/22/2025 11:17 AM EST) Anatomical Region Laterality Modality Lower Extremities, Foot Right Radiogra phic Imaging Narrative 06/22/2025 4:18 PM EST Indication: pain. Views: AP lateral and oblique views of the feet are submitted. Impression: Nondisplaced fracture of the dorsum of the navicular. Comparison: 06/16/2025. us Bj Shanks MD IMG DIAGNOSTIC IMAGING AIDAN GONSALES Final Result documented in this encounter Visit Diagnoses Not on filedocumented in this encounter Care Teams Truck Caterer Relationship Specialty Start Date End Date Chirs Randolph MD [address] [place] [address] [place] [address] PCP - General Internal Medicine 03/19/23 documented as of this encounter
--- OUTSIDE RECORDS SUMMARY | 2025-06-22 11:15 | XMS_ITS | Encounter Summary ---
Author Organization [facility] Address [address] [place] [address] Care Team Providers Care Summons Server Name Role Phone Chris Randolph MD Primary Care Provider Encounter Details Date Type Department Care Team (Late st Contact Info) Description 06/22/2025 11:15 AM EST Ancillary Procedure [facility] ORTHOPEDICS & SPORTS MEDICINE [address] [place] [phone] Social History Tobacco Use Types Packs/Day [...] file Travel History Travel Start Travel End [place] 05/22/2025 06/22/2025 documented as of this encounter Plan of Treatment Upcoming Encounters Date Type Department Care Team (Late st Contact Info) Description 11/30/2025 10:50 AM EDT Office Visit [facility] O[facility]YN [address] [address] [place] [address] Natty Parr MD [address] [place] [address] documented as of this encounter Procedures Procedure [...] There are no acute changes. Comparison: 06/16/2025. us Bj Shanks MD IMG DIAGNOSTIC IMAGING AIDAN GONSALES Final Result documented in this encounter Visit Diagnoses Not on filedocumented in this encounter Care Teams Summons Server Relationship Specialty Start Date End Date Chris Randolph MD [address] [place] [address] PCP - General Internal Medicine 03/19/23 documented as of this encounter
--- NOTE | 2025-07-13 08:15 | MR_ITS ---
FINAL REPORT CLINICAL HISTORY: eval lisfranc/TMT ligament,cuneiform fx,ATFL tear injury to foot 06/13/2025 pain across top of foot FINDINGS: Multiplanar MR imaging of the right foot was performed without contrast. The bony structures are intact without evidence of fracture, bone bruise or marrow edema. The Achilles tendon is intact. Plantar fascia is intact. There is a small joint effusion. Mortise is intact. Flexor and extensor tendons are intact anterior and posterior talofibular ligaments are intact. Lisfranc ligament is not optimally visualized but appears to be intact. This is best demonstrated on image 24 of series 4. IMPRESSION: Small joint effusion. Intact Lisfranc ligament. No bone marrow edema. Reviewed, Interpreted and Dictated by Macho Hayes MD Transcribed by Alexandra Hendricks Authenticated and [facility]
--- OUTSIDE RECORDS SUMMARY | 2025-07-13 08:26 | XMS_ITS | Clinical Summary ---
Author Organization [employer] [facility] Address [address] [place] [address] Care Team Providers Care Wood Filler Name Role Phone Unavailable Primary Care Provider Unavailabl e Allergies Active Allergy Reactions Criticality Noted Date Comments Nitrofuran Analogues 07/15/2020 Sulfa (Sulfonamide Antibiotics) 06/29 Medications No known medications Family History Medical History Relation Comments Cancer Mother Relation Status Comments Father Mother Alive Social History Tobacco Use Types Packs/Day Years Used Date Smoking Tobacco: Never Smokeless Tobacco: Never Comments Unknown Sex and Gender Information Value Date Recorded Sex Assigned at Not on file Legal Sex Female 5:32 AM EST Gender Identity Not on file Sexual Orientation Not on file Last Filed Vital Signs Vital Sign Reading Time Taken Comments Blood Pressure - - Pulse - - Temperature - - Respiratory Rate - - Oxygen Saturation - - Inhaled Oxygen Concentration - - Weight 49.9 kg (110 lb) 07/15/2020 3:45 PM EST Height 157.5 cm (5' 2 ) 07/15/2020 3:45 PM EST Body Mass Index 20.12 07/15/2020 3:45 PM EST Plan of Treatment Not on file Medical Devices Not on file
--- OUTSIDE RECORDS SUMMARY | 2025-07-13 08:27 | XMS_ITS | Clinical Summary ---
Author Organization [facility] Address [address] [place] [address] Care Team Providers Care Toxics Program Officer Name Role Phone Chris Randolph MD Primary Care Provider [phone] Allergies Active Allergy Reactions Criticality Noted Date Comments Nitrofuran Derivatives Hives Low 09/30/2019 Sulfa Antibiotics Hives Low 09/30/2019 Medications ibuprofen (ADVIL,MOTRIN) 200 MG tablet Take 1 tablet by mouth As Needed for Mild Pain. Active Active Problems Problem Noted Date Diagnosed Date Elevated blood pressure read ing in office without diagnosis of hypertension 06/19/2025 Avulsion fracture 06/19/2025 Skin cyst 06/19/2025 Exposure to COVID-19 virus 02/06/2024 Acute intractable headache 03/19/2023 History of colon polyps 03/19/2023 Irregular periods 10/19/2021 Overview (10/20/2021): 10/19/2021-patient reporting her periods are getting closer together and more regular. She is not having breakthrough bleeding, however her periods are ranging from 17 to 24 days typically. In the past they have been at 28 days. Hemoglobin noted to be 13.9. And TSH drawn on 10/19/2021 within normal limits. We discussed cycling on OCPs to help. Patient interested in this. We reviewed risk of clot to legs lungs and stroke. Patient understands risk and would like to proceed. History of abnormal cervical Pap smear Overview (10/24/2022): 09/07 ASCUS high risk HPV positive 11/05 cervical biopsy moderate dysplasia SHAHID-1/2 02/04 biopsy low-grade SHAHID-1 to 2008 cold knife cone. Normal after until 10/15 ASCUS positive nonsixteen/18 HPV. 05/17 low-grade BRANDY 06/17 colposcopy showed mild dysplasia 02/15 (annual) ASCUS HPV negative 09/27/2020 ASCUS HPV negative 03/30/2021 (annual) ASCUS HPV nonsixteen/18+. Recommend repeat in 6 months 10/19/2021-repeat Pap-L BRANDY-recommend colposcopy 11/15/21 Colpo-biopsy mild. ECC negative. 04/17/22 Pap (annual) wnl 10/16/2022-ASCUS, HPV negative History of conization of cervix 08/11/2020 Overview (08/11/2020): In 2008 Family history of breast cancer 08/11/2020 Overview (04/17/2022): Diagnosed in her mother at age 50. She was treated with bilateral mastectomy followed by tamoxifen 04/17/22: Pt reports mammogram done at [place] Jul 2021 normal Encounters Date Type Department Care Team Description 06/24/2025 Telephone [facility]IMARY [facility] [address] [place] [address] [place] [address] Chris Randolph MD 06/24/2025 Telephone [facility] [address] [place] [address] Chris Randolph MD 06/22/2025 11:15 AM EST Ancillary Procedure [facility] [address] [place] [phone] 06/22/2025 11:10 AM EST Ancillary Procedure [facility] [address] [place] [phone] 06/22/2025 10:50 AM EST Office Visit [facility] [address] [place] [phone] Deepti Colby PA-C Joint pain of ankle and foot, right (Primary Dx) 06/22/2025 Travel 06/19/2025 2:15 PM EST Office Visit [facility] [address] [place] [address] [place] [address] Chris Randolph MD Elevated blood pressure reading in office without diagnosis of hypertension (Primary Dx); Avulsion fracture; Skin cyst 06/19/2025 Travel 06/16/2025 8:40 AM EST - 06/16/2025 10:34 AM EST Emergency [facility] EM[facility]GENCY DEPARTMENT [address] [place] [address] Mark Anthony Daniel MD Closed nondisplaced fracture of cuboid of right foot, initial encounter (Primary Dx) Discharge Disposition: Home or Self Care 06/16/2025 Travel 06/15/2025 Telephone [facility] [address] [place] [address] [place] [phone] Chris Randolph MD from Last 3 Months Immunizations Immunization Administration Dates Next Due COVID-19 (PFIZER) Purple Cap Monovalent 06/14/20,11/18/2020,10/21/2020 Covid-19 (Pfizer) Ruiz Cap Monovalent 03/08/2022 Fluzone (or Fluarix & Flulav al for VFC) >6mos 06/13/2021,08/13/2019 Family History Medical History Relation Name Comments Breast cancer Maternal Aunt Colon cancer Maternal Aunt Osteoporosis Maternal Aunt Leukemia Maternal Grandmother Osteoporosis Maternal Grandmother Breast cancer Mother Fibroids Mother Heart disease Mother Hypertension Mother Brain cancer Paternal Grandfather Lung cancer Paternal Grandfather Relation Name Status Comments Father Maternal Aunt Maternal Grandmother Mother Alive Paternal Grandfather Social History Tobacco Use Types Packs/Day Years Used Date Smoking Tobacco: Never Passive Smoke Exposure: Never Smokeless Tobacco: Never Tobacco Cessation:Counseling Given: Not Answered Alcohol Use Standard Drinks/Week Comments Yes 0 [...] file Travel History Travel Start Travel End [place] 05/22/2025 06/22/2025 Last Filed Vital Signs Vital Sign Reading Time Taken Comments Blood Pressure 150/92 06/22/2025 10:54 AM EST Pulse 69 06/19/2025 2:29 PM EST Temperature 36.8 C (98.2 F) 06/19/2025 2:29 PM EST Respiratory Rate 20 06/16/2025 8:38 AM EST Oxygen Saturation 98% 06/19/2025 2:29 PM EST Inhaled Oxygen Concentration - - Weight 55.8 kg (123 lb 1.6 oz) 06/22/2025 10:54 AM EST Height 157.5 cm (5' 2 ) 06/22/2025 10:54 AM EST Body Mass Index 22.52 06/22/2025 10:54 AM EST Plan of Treatment Upcoming Encounters Date Type Department Care Team (Late st Contact Info) Description 11/30/2025 10:50 AM EDT Office Visit [facility] O[facility]YN [address] [phone] José Parr [facility] [address] [place] [address] Health Maintenance Due Date Last Done Comments Annual Breast MRI 1975 TDAP/TD VACCINES (1 - Tdap) 1995 ANNUAL PHYSICAL 08/13/2019 COLOGUARD 2021 COLON CANCER SCREENING [address] COLONOGRAPHY 2021 FECAL OCCULT BLOOD TEST 2021 FIT Testing (1 year) 2021 Annual Gynecologic Pelvic and Breast Exam 11/21/2025 11/20/2024, 10/19/2021, 03/30/2021 INFLUENZA VACCINE 12/16/2025 06/13/2021, 08/13/2019 Postponed from 02/27/2025 (Patient Refused) MAMMOGRAM TCS >= 20 01/22/2026 01/22/2025, 01/17/2024, 09/14/2022, Additional history exists PAP SMEAR 11/21/2027 11/20/2024, 10/28, 10/16/2022, Additional history exists COLONOSCOPY 07/20/2031 07/20/2021, 07/19/2021 COLORECTAL CANCER SCREENING 07/20/2031 HEPATITIS C SCREENING Completed 03/30/2021 MAMMOGRAM Discontinued 01/26/2025, 12/29, 01/17/2024, Additional history exists Pneumococcal Vaccine 0-49 Aged Out No longer eligible based on patient's age to complete this topic Procedures Procedure Name Priority Date/Time Associated Diagnosis Comments SCANNED - IMAGING 07/02/2025 XR ANKLE 3+ VW RIGHT Routine 06/22/2025 11:17 AM EST Joint pain of ankle and foot, right XR FOOT 3+ VW RIGHT Routine 06/22/2025 1 1:17 AM EST Joint pain of ankle and foot, right ECG 12-LEAD Routine 06/19/2025 Elevated blood pressure reading in office without diagnosis of hypertension XR FOOT 3+ VW RIGHT STAT 06/16/2025 9 :18 AM EST XR ANKLE 3+ VW RIGHT STAT 06/16/2025 9:17 AM EST MAMMO SCREENING DIGITAL TOMOSYNTHESIS BILATERAL W CAD Routine 01/22/2025 2:55 PM EDT Family history of breast cancer LIQUID-BASED PAP SMEAR WITH HPV GENOTYPING REGARDLESS OF INTERPRETATION, [facility] ([facility]) Routine 11/20/2024 12:38 PM EDT History of abnormal cervical Pap smear Women's annual routine gynecological examination SCANNED - PAP SMEAR 10/19/2021 SCANNED - COLONOSCOPY 07/20/2021 HCV ANTIBODY RFX TO QNT PCR Routine 03/30/2021 11:07 AM EDT Screening for STD (sexually transmitted disease) from Last 3 Months or Most Recently Relevant to Health Maintenance Results * IMAGING SCANNED (07/02/2025) Anatomical Region Laterality Modality Radiographic Maggie ging Chris Randolph MD [facility] ORDERAB LES Final Result * XR Ankle 3+ View Right (06/22/2025 11:17 AM EST) Only the most recent of2 resultswithin the time period is included. Anatomical Region Laterality Modality Lower Extremities, Ankle Right Radiogr aphic Imaging Narrative 06/22/2025 4:19 PM EST Indication: pain. Views: AP and oblique views of the ankle are submitted. Impression: The mortise is congruent. There is no widening. There is no fracture subluxation or dislocation. There are no acute changes. Comparison: 06/16/2025. Bj Shanks MD [facility] ORDE RABJULIANNA Final Result * XR Foot 3+ View Right (06/22/2025 11:17 AM EST) Only the most recent of2 resultswithin the time period is included. Anatomical Region Laterality Modality Lower Extremities, Foot Right Radiogra phic Imaging Narrative 06/22/2025 4:18 PM EST Indication: pain. Views: AP lateral and oblique views of the feet are submitted. Impression: Nondisplaced fracture of the dorsum of the navicular. Comparison: 06/16/2025. Bj Shanks MD [facility] ORDE RABJULIANNA Final Result * ECG 12-LEAD (06/19/2025) Narrative ECG - 06/19/2025 Chris Randolph MD 06/19/2025 [...] Office Visit Date: 06/19/2025 Patient Name: Lucian Pulido : 1975 Chief Complaint: Chief Complaint Patient presents with ER follow up History of Present Illness: Lucian Pulido is a 49 y.o. female whois here [...] caught in the stirrup. [facility] where an x-rayof [...] placed or performed in visit on 01/19/25 [facility] GENETIC RISK ASSESSMENT QUESTIONNAIRE - , Collection [...] blood pressure more frequently, aiming for readings [id number]. An EKG performed today has ruled out left ventricular hypertrophy,including incidental finding of IVCD and left anterior fascicular blocklikely of no clinical significance. She is advised to start checkingblood pressures regularly with ideal parameters discussed, and follow- upin the office in 6 weeks for review as well as for complete physical.Discussed with patient that [place] blood pressure is 130/80 or lower. Ifher blood pressure remains elevated in the 140s over 90s consistently overa period of 6 weeks, antihypertensive medication will be considered. 2. Right foot injury/avulsion fracture. She sustained a minor avulsion fracture of the cuboid bone in her rightfoot during an endurance race last weekend 6 days ago. [facility] where [...] this procedure is unsuccessful, a referral toa police chief deputy will be considered. PROCEDURE Procedure: Needle aspiration [...] 07/31/2025) for Annual physical. 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 06/19/2025 17:29 EST At [facility], we believe that sharing information builds trust andbetter relationships. You are receiving this note because you recentlyvisited [facility]. It is possible you will see health informationbefore a provider has talked with you about it. This kind of informationcan be easy to misunderstand. To help you fully understand what it meansfor your health, we urge you to discuss this note with your provider. Chris Randolph MD [facility] Provider Result Type Result Stat Chris Randolph MD ECG ORDERABLES Final Result ECG * Mammo Screening Digital Tomosynthesis Bilateral With CAD (01/22/2025 2:55 PM EDT) Anatomical Region Laterality Modality Breast N/A Mammography 01/26/2025 1:22 PM EDT Impressions 01/26/2025 1:24 PM EDT No suspicious abnormality identified. OVERALL ASSESSMENT: ACR BI-RADS CATEGORY: 1, NEGATIVE: Recommend continued routine annual screening mammogram. The patient's calculated lifetime risk of breast cancer by Tyrer-Cuzick score is 22.6%. Consideration for annual high risk screening breast MRI is recommended. The standard false-negative rate of mammography is between 10% and 25%. Complex patterns or increased breast density will markedly elevate the false-negative rate of mammography. A letter, in lay terminology, with the results of this exam will be mailed to the patient. 01/26/2025 1:24 PM by Gemma Andersen MD on Narrative 01/26/2025 1:24 PM EDT BILATERAL DIGITAL SCREENING MAMMOGRAM WITH TOMOSYNTHESIS CLINICAL INDICATION: Screening mammogram. TECHNIQUE: Bilateral low dose full field digital breast tomosynthesis imaging was performed. CAD was utilized. COMPARISON: Prior study same back to 10/07/2015. FINDINGS: The breasts are heterogeneously dense. RIGHT BREAST: No suspicious masses, calcifications, or areas of distortion are seen. LEFT BREAST: No suspicious masses, calcifications, or areas of distortion are seen. Subpectoral saline implants are again noted. José Parr MD IMG MAMMOGRAPHY ORDERABL ES Final Result * LIQUID-BASED PAP SMEAR WITH HPV GENOTYPING REGARDLESS OF INTERPRETATION (ROGER,COR,MAD) (11/20/2024 12:38 PM EDT) Reference Lab Report [facility] [address] [place] [address] or [phone] Chris Malloy M.D., Oxide Furnace Tender PATIENT NAME LABORATORY NO. [id number] LUCIAN PULIDOSusie [id number] AGE SEX SSN CLIENT REF # [facility] 49 1975 F [id number] [address] REQUESTING [place]ING [place] [address] JOSÉ PARR DATE COLLECTED DATE RECEIVED DATE REPORTED 11/20/2024 11/20/2024 11/21/2024 ThinPrep Pap with Hologic Genius Imaging DIAGNOSIS: Negative for intraepithelial lesion or malignancy Multiple factors can influence accuracy of Pap tests; therefore, screening at regular intervals is necessary for early cancer detection. Professional interpretation rendered by Chris Malloy M.D., Garth.C.ASusieP. at [facility], [facility], [address] [place] [address]. SPECIMEN ADEQUACY: SATISFACTORY FOR EVALUATION Transformation zone is present. SOURCE OF SPECIMEN: CERVICAL/ENDOCERVI OLYA SLIDES: 1 CLINICAL HISTORY: History of abnormal cervical Pap smear Women's annual routine gynecological examination Hx/o conization of cervix Family hx/o breast cancer Screening for STD HPV HR-HPV POOL: Negative The Aptima HPV assay is an in vitro nucleic acid amplification test for the qualitative detection of E6/E7 viral messenger RNA from 14 high risk types of HPV in cervical specimens. The high risk HPV types detected include: 16, 18, 31, 33, 35, 39, 45, 51, 52, 56, 58, 59, 66, 68 Chlamydia / Gonorrhea CHLAMYDIA TRACHOMATIS: Negative NEISSERIA GONORRHOEAE: Negative The Aptima Combo 2 assay is a target amplification nucleic acid probe test that utilizes target capture for the in vitro qualitative detection and differentiation of ribosomal RNA from Chlamydia trachomatis and Neisseria gonorrhoeae to aid in the diagnosis of chlamydial and gonococcal disease using the [place] system. BANKING REPRESENTATIVE: TANNER MARQUES (ASCP) REVIEWED, DIAGNOSED AND ELECTRONICALLY SIGNED BY: Chris Malloy M.D., F.C.A.P. CPT CODES: 82630, [id number], [id number], [id number], [id number] 11/21/2024 1:45 PM EDT [facility] ThinPrep Vial Cervix uteri structure / Unknown Collection / Unknown 11/20/2024 12:38 PM EDT 11/20/2024 12:38 PM EDT José Parr MD PATHOLOGY/CYTOLOGY ORDER PETE Final Result [facility]
[address] [place] [address], * SCANNED - PAP SMEAR (10/19/2021) José Parr MD CHART REVIEW TABS Fin al Result * SCANNED - COLONOSCOPY (07/20/2021) Chris Randolph MD CHART REVIEW TABS Final Res ult * HCV Antibody Rfx To Qnt PCR (03/30/2021 11:07 AM EDT) Hepatitis C Ab <0.1 0.0 - 0.9 s/co ratio [facility] Blood 03/30/2021 11:0 7 AM EDT 03/30/2021 Narrative [facility] ([facility]ORY) - 03/31/2021 8:12 AM EDT Performed at: [address] [place] [address] [place] [id number] Manager Flight Operations: Diego Colorado PhD, Phone: [phone] José Parr MD LAB BLOOD ORDERABLES Fin al Result Performing Organization Address City/State/[facility] Co de Phone Number [facility] ([facility]ORY) [address] [place] [address], [facility] [address] [place] [address], from Last 3 Months or Most Recently Relevant to Health Maintenance Insurance [employer] PREFERRED ALL STATES Care Teams Toxics Program Officer Relationship Specialty Start Date End Date Chris Randolph MD [address] [place] [address] [place] [address] PCP - General Internal Medicine 03/19/23
--- OUTSIDE RECORDS SUMMARY | 2025-07-13 08:29 | XMS_ITS | Encounter Summary ---
[facility] Address [address] [place] [address] Care Team Providers Care Utilities Ground Worker Name Role Phone Chris Randolph MD Primary Care Provider [phone] Encounter Details Date Type Department Care Team (Latest Contact Info) Description 06/19/2025 Travel Social History Tobacco Use Types Packs/Day Years [...] file Travel History Travel Start Travel End [place] 05/22/2025 06/22/2025 documented as of this encounter Functional Status documented as of this encounter Plan of Treatment Upcoming Encounters Date Type Department Care Team ( st Contact Info) Description 11/30/2025 10:50 AM EDT Office Visit [facility] OBGYN [address] [place] [address] [place] [phone] Natty Parr MD [facility] [facility] [address] [place] [address] documented as of this encounter Visit Diagnoses Not on filedocumented in this encounter Care Teams Utilities Ground Worker Relationship Specialty Start Date End Date Chris Randolph MD [address] [place] [address] [place] [address] PCP - General Internal Medicine 03/19/23 documented as of this encounter
--- OUTSIDE RECORDS SUMMARY | 2025-07-13 08:34 | XMS_ITS | Encounter Summary ---
Author Organization [facility] Address [address] [place] [address] Care Team Providers Care Patient Support Partner Name Role Phone Chris Randolph MD Primary Care Provider [phone] Reason for Referral * Consultation (Routine) - Closed Specialty Diagnoses / Procedures Referred By Contac t Referred To Contact Podiatry Diagnoses Avulsion fracture Procedures [place] OFFICE/OUTPATIENT NEW MODERATE MDM 45 MINUTES Chris Randolph MD [address] [place] [address] [place] [address] Phone: tel: fax: Ana Castellanos, DPM [address] [place] [address] [address] Phone: tel: fax: Referral ID Status Reason Start Date Expiration Date V isits Requested Visits Authorized [id number] Closed Specialty Services Required 06/24/2025 09/23/2026 1 1 Scheduling Instructions Schedule with Dr. Elsa Castellanos of podiatry. Encounter Details Date Type Department Care Team (Late st Contact Info) Description 06/24/[address] [facility] [address] [place] [address] [place] [phone] Chris Randolph MD [address] [place] [address] [place] [address] Social History Tobacco Use Types Packs/Day Years [...] file Travel History Travel Start Travel End [place] 05/22/2025 06/22/2025 documented as of this encounter Miscellaneous Notes * Telephone Encounter - Chris Randolph MD - 06/24/2025 2:32 PM EST Phone conversation with patient after she was seen by [facility] orthopedic surgery on 06/22/2025 in follow-up of a right nondisplaced navicular fracture that was initially evaluated in the emergency room and for which she was placed boot. She had repeat images that reportedly confirmed the same findings and she was advised to stay in a boot for 6 weeks after which she was to return with repeat x-rays. Patient subsequently contacted our office requesting referral to Dr. Elsa Castellanos of podiatry for second opinion, indicating to me via telephone that [facility] feeling that the provider was dismissive to her concerns. I did advise patient that I think it is very unlikely that any other provider would recommend any different treatment protocol then wearing a boot with follow-up imaging, but per her request will refer to Dr. Castellanos for second opinion and ongoing management. I did advise patient to obtain copies ofher most recent images on a disk and to take them with her to the podiatry consultation. documented in this encounter Plan of Treatment Upcoming Encounters Date Type Department Care Team (Late st Contact Info) Description 11/30/2025 10:50 AM EDT Office Visit [facility] [address] [facility] [address] [place] [address] Natty Parr MD [address] [facility] [address] [place] [address] documented as of this encounter Visit Diagnoses Diagnosis Avulsion fracture- Primary Closed fracture of unspecified bone documented in this encounter Care Teams Patient Support Partner Relationship Specialty Start Date End Date Chris Randolph MD [address] [place] [address] [place] [address] PCP - General Internal Medicine 03/19/23 documented as of this encounter
--- OUTSIDE RECORDS SUMMARY | 2025-07-13 08:34 | XMS_ITS | Encounter Summary ---
Author Organization [facility] Address [address] [place] [address] Care Team Providers Care Leasing Associate Name Role Phone Chris Randolph MD Primary Care Provider [phone] Encounter Details Date Type Department Care Team (Latest Contact Info) Description 06/22/2025 Travel Social History Tobacco Use Types Packs/Day [...] file Travel History Travel Start Travel End [place] 05/22/2025 06/22/2025 documented as of this encounter Plan of Treatment Upcoming Encounters Date Type Department Care Team ( Contact Info) Description 11/30/2025 10:50 AM EDT Office Visit [facility] [facility] [address] [place] [address] Natty Parr MD [address] [facility] [address] [place] [address] documented as of this encounter Visit Diagnoses Not on filedocumented in this encounter Care Teams Leasing Associate Relationship Specialty Start Date End Date Chris Randloph MD [address] [place] [address] [place] [address] PCP - General Internal Medicine 03/19/23 documented as of this encounter
--- OUTSIDE RECORDS SUMMARY | 2025-07-13 08:34 | XMS_ITS | Encounter Summary ---
Author Organization [facility] Address [address] [place] [address] Care Team Providers Care Lap Polisher Name Role Phone Cipriano Woodruff MD Primary Care Provider [phone] Encounter Details Date Type Department Care Team (Late st Contact Info) Description 06/24/2025 Telephone [facility] PRIMARY [facility]ARE [address] [place] [address] [place] [phone] Cipriano Woodruff MD [address] [place] [address] [place] [address] Social History Tobacco Use Types Packs/Day [...] encounter Miscellaneous Notes * Telephone Encounter - Jennifer Wei RegSched Rep - 06/24/2025 1:31 PM EST PT CALLED STATING THAT WE NEEDED TO SEND A REFERRAL TO DR VELÁZQUEZ AT [facility] FOR A SECOND OPINION SHE WAS UNHAPPY AFTER HER [facility] APPOINTMENT ON 06/22. I EXPLAINED TO PATIENT THAT WE WOULD SEND THAT REFERRAL BUT SHE WOULD NEED TO GET RECORDS FROM [facility] ED AND/OR [facility] WE ARE UNABLE TO RELEASE RECORDS THAT DO NOT COME FROM A PROVIDER IN OUR OFFICE. PT STATED THAT SHE WAS NOT DOING THAT, WE SHOULD BE ABLE TO SEND THOSE RECORDS. I AGAIN EXPLAINED THAT WE COULD NOT RELEASE THOSE RECORDS SINCE THEY DID NOT COME FROM [place] AND GAVE PT THE NUMBER TO MEDICAL RECORDS. I LET HER KNOW WE WOULD AGAIN SEND THE REFERRAL TO DR VELÁZQUZE'S OFFICE WITH OUR RECORDS F ROM WHEN SHE SAW DR. CIPRIANO WOODRUFF. documented in this encounter Plan of Treatment Upcoming Encounters Date Type Department Care Team (Late st Contact Info) Description 11/30/2025 10:50 AM EDT Office Visit [facility] OBGYN [address] [phone] Natty Parr MD [address] [id number] documented as of this encounter Visit Diagnoses Not on filedocumented in this encounter Care Teams Lap Polisher Relationship Specialty Start Date End Date Cipriano Woodruff MD [address] [place] [address] [place] [address] PCP - General Internal Medicine 03/19/23 documented as of this encounter
--- OUTSIDE RECORDS SUMMARY | 2025-07-13 08:36 | XMS_ITS | Clinical Summary ---
Author Organization [employer] ([place], [place], [place], [place], [place]) Address [address] [place] [address] Care Team Providers Care Willow Analyst Name Role Phone Natty Parr MD Primary Care Provider [phone] Social History Tobacco Use Types Packs/Day Years Used Date Smoking Tobacco: Never Assessed Comments Unknown Sex and Gender Information Value Date Recorded Sex Assigned at Female 09/11/2024 1:18 PM C[employer]TER [employer]UM Legal Sex Female 1:18 PM [employer] Gender Identity Female 09/11/2024 1:18 PM [employer] Sexual Orientation Not on file Plan of [...] the next mammogram. At our facility, a [place] marker is positioned over a visible skin [...] to Health Maintenance Insurance [employer] Care Teams Willow Analyst Relationship Specialty Start Date End Date Natty Parr MD [address] [place] [id number] PCP - General Obstetrics and Gynecology 09/14/22
--- OUTSIDE RECORDS SUMMARY | 2025-07-13 08:36 | XMS_ITS | Encounter Summary ---
[facility] Address [address] [place] [address] Care Team Providers Care Manufacturing Quality Inspector Name Role Phone Chris Randolph MD Primary Care Provider [phone] Encounter Details Date Type Department Care Team (Late st Contact Info) Description 11/24/2024 Results Follow-Up [facility] OBGYN [address] [facility] [address] [place] [phone] Natty Parr MD [address] [facility] [address] [place] [address] Social History Tobacco Use Types Packs/Day Years Used Date Smoking Tobacco: Never Passive Smoke Exposure: Never Smokeless Tobacco: Never Alcohol Use Standard Drinks/Week Comments Yes 0 (1 standard drink = 0.6 oz pur e alcohol) socail PHQ-2 Answer Date Recorded Retired PHQ-9: Brief Depression Severity Measure Score 0 03/19/2023 Abuse Screen Answer Date Recorded Feels Unsafe at Home or Work/School no 12/22/2022 Feels Threatened by Someone no 11/28 Does Anyone Try to Keep You From Having Contact with Others or Doing Things Outside Your Home? no 12/22/2022 Physical Signs of Abuse Present no 12/22/2022 PHQ-2 Answer Date Recorded Retired PHQ-9: Brief Depression Severity Measure Score 0 03/19/2023 Comments No Sex and Gender Information Value Date Recorded Sex Assigned at Not on file Legal Sex Female 12:53 PM EDT Gender Identity Not on file Sexual Orientation Not on file Travel History Travel Start Travel End [place] 05/22/2025 06/22/2025 documented as of this encounter Miscellaneous Notes * Telephone Encounter - Vivienne Shanks RegSched Rep - 11/25/2024 2:02 PM EDT Pt lvm for call back documented in this encounter Plan of Treatment Upcoming Encounters Date Type Department Care Team (Late st Contact Info) Description 11/30/2025 10:50 AM EDT Office Visit [facility] OBGYN [address] [phone] Natty Parr MD [address] [phone] documented as of this encounter Visit Diagnoses Not on filedocumented in this encounter Care Teams Manufacturing Quality Inspector Relationship Specialty Start Date End Date Chris Randolph MD [address] [place] [address] [place] [address] PCP - General Internal Medicine 03/19/23 documented as of this encounter
--- OUTSIDE RECORDS SUMMARY | 2025-07-13 08:36 | XMS_ITS | Referral Summary ---
Author Organization [employer] ([place], [place], [place], [place], [place]) Address [address] [place] [address] Care Team Providers Care Hadoop Administrator Name Role Phone Natty Parr MD Primary Care Provider [phone] Social History Tobacco Use Types Packs/Day Years Used Date Smoking Tobacco: Never Assessed Comments Unknown Sex and Gender Information Value Date Recorded Sex Assigned at Female 09/11/2024 1:18 PM ARMY MANAGER Legal Sex Female 1:18 PM ARMY MANAGER Gender Identity Female 09/11/2024 1:18 PM ARMY MANAGER Sexual Orientation Not on file Plan of [...] the next mammogram. At our facility, a [place] marker is positioned over a visible skin [...] to Health Maintenance Insurance [employer] Care Teams Hadoop Administrator Relationship Specialty Start Date End Date Natty Parr MD [address] [facility] [address] [place] [address] PCP - General Obstetrics and Gynecology 09/14/22
== END 2025-07-13 23:59 | disposition home or self-care (01) ==
LOC: RAD 08:17
PROVIDERS: PCP Internal Medicine; Visit Provider Podiatrist
DX: S93.491A Sprain of other ligament of right ankle, initial encounter (principal); S92.224A Nondisplaced fracture of lateral cuneiform of right foot, initial encounter for closed fracture; S93.621A Sprain of tarsometatarsal ligament of right foot, initial encounter; Y93.52 Activity, horseback riding
CPT/HCPCS: 73718